=== PATIENT | female | born 1950 | race Hispanic/Latino ===

== ENCOUNTER 2021-03-26 19:38 | Emergency (ER) | payer MEDICARE ==
[2021-03-26] MEDS ORDERED: ALUM-MAG HYDROXIDE-SIMETHICONE 200-200-20MG/5ML ORAL LIQD 30 ML PO ONE (21:24)
[2021-03-26] MEDS ORDERED: MORPHINE 4 MG/1 ML INJ IV ONE (21:24)
[2021-03-26] MEDS ORDERED: ONDANSETRON 4 MG/2 ML INJ IV ONE (21:24)
[2021-03-26] MEDS ORDERED: LIDOCAINE VISCOUS 2% 15 ML ORAL LIQD PO ONE (21:24)
[2021-03-26] MEDS ORDERED: PANTOPRAZOLE 40 MG INJ IV ONE (21:24)
--- NOTE | 2021-03-26 21:33 | Emergency Department Report ---
ED Chest Pain HPI - General Chief Complaint: Chest Pain Stated Complaint: CHEST PAIN Time Seen by Provider: 03/26/21 21:13 Source: patient Mode of arrival: Ambulatory Limitations: No Limitations - History of Present Illness Initial Comments: Chief complaint: Chest pain HPI: This is a 70-year-old female with history of thyroid cancer status post thyroidectomy, hypertension who presents with right-sided severe chest pain radiating to the back. Sudden onset of 12:30 PM. 10/10 dull burning pain. She has associated vomiting diarrhea. She denies fever headache shortness of breath. She attempted Pepto-Bismol and cold medicine. She states, "I cannot get comfortable." I reviewed electronic record. In November of this year patient was admitted for ch est pain with elevated troponin values. On 11/30/2020 left heart catheterization revealed normal coronary arteries without aortic stenosis normal ejection fraction. She denies sick contacts MD Complaint: chest pain -: Sudden (12:30 PM while watching TV) Onset: during rest Pain Location: right chest Pain Radiation: back Severity scale (0 -10): 10 Quality: other (Burning) Consistency: constant Improves With: nothing Worsens With: nothing Other Symptoms: other (Vomiting diarrhea) Treatments Prior to Arrival: other (Pepto-Bismol cold medicine) - Related Data Home Medications Medication Instructions Recorded Confirmed Last Taken Levothyroxine Sodium 137 mcg PO QAM 12/01/20 12/01/20 11/28/20 [Levothyroxine] Losartan/Hydrochlorothiazide 1 each PO DAILY 12/01/20 12/01/20 11/28/20 [Losartan-Hctz 100-25 mg Tab] Simvastatin 20 mg PO DAILY 12/01/20 12/01/20 11/28/20 atenoloL [Tenormin] 50 mg PO DAILY 12/01/20 12/01/20 11/28/20 oxyCODONE /ACETAMINOPHEN [Percocet 10 mg PO Q8H 12/01/20 12/01/20 11/28/20 5/325 mg] Previous Rx's Medication Instructions Recorded Last Taken Type Omeprazole 40 mg PO DAILY 30 Days #30 03/27/21 Unknown Rx capsule. Allergies Allergy/AdvReac Type Severity Reaction Status Date / Time No Known Allergies Allergy Unverified 11/29/20 15:58 Heart Score - HEART Score History: Slightly suspicious EKG: Normal Age: > 65 Risk factors: 1-2 risk factors Troponin: < normal limit HEART Score: 3 - EKG Read Time Time EKG Completed: 21:00 EKG Read Time: 21:13 - Critical Actions Critical Actions: 0-3 pts:0.9-1.7%risk of adverse cardiac event.Candidate for discharge ED Review of Systems ROS: Stated complaint: CHEST PAIN Other details as noted in HPI Comment: All other systems reviewed and negative Constitutional: denies: chills, fever, malaise Respiratory: denies: cough, shortness of breath Cardiovascular: chest pain Gastrointestinal: nausea, vomiting, diarrhea. denies: abdominal pain Musculoskeletal: back pain ED Past Medical Hx - Past Medical History Previous Medical History?: Yes Hx Hypertension: Yes Additional medical history: Thyroid cancer status post thyroidectomy - Surgical History Past Surgical History?: Yes Hx Appendectomy: No Additional Surgical History: Thyroidectomy, foot surgery - Social History Smoking Status: Former Smoker Substance Use Type: None - Medications Home Medications: Home Medications Medication Instructions Recorded Confirmed Last Taken Type Levothyroxine Sodium 137 mcg PO QAM 12/01/20 12/01/20 11/28/20 History [Levothyroxine] Losartan/Hydrochlorothiazide 1 each PO DAILY 12/01/20 12/01/20 11/28/20 History [Losartan-Hctz 100-25 mg Tab] Simvastatin 20 mg PO DAILY 12/01/20 12/01/20 11/28/20 History atenoloL [Tenormin] 50 mg PO DAILY 12/01/20 12/01/20 11/28/20 History oxyCODONE /ACETAMINOPHEN [Percocet 10 mg PO Q8H 12/01/20 12/01/20 11/28/20 History 5/325 mg] Omeprazole 40 mg PO DAILY 30 Days #30 03/27/21 Unknown Rx capsule. ED Physical Exam - General Limitations: No Limitations General appearance: alert, in no apparent distress, anxious, other (Rocking back and forth, appears in severe pain, anxious) - Head Head exam: Present: atraumatic, normocephalic - Eye Eye exam: Present: normal appearance - ENT ENT exam: Present: mucous membranes moist - Neck Neck exam: Present: normal inspection, full ROM. Absent: tenderness, meningismus - Respiratory Respiratory exam: Present: normal lung sounds bilaterally. Absent: respiratory distress, wheezes, rales, rhonchi - Cardiovascular Cardiovascular Exam: Present: regular rate, normal rhythm, normal heart sounds. Absent: systolic murmur, diastolic murmur, rubs, gallop - GI/Abdominal GI/Abdominal exam: Present: soft, normal bowel sounds. Absent: distended, tenderness, guarding, rebound - Extremities Exam Extremities exam: Present: normal inspection - Back Exam Back exam: Present: normal inspection - Neurological Exam Neurological exam: Present: alert, oriented X3, normal gait - Psychiatric Psychiatric exam: Present: normal mood, anxious - Skin Skin exam: Present: warm, dry, intact, normal color. Absent: rash ED Course Vital Signs 03/26/21 20:45 Temperature 99.4 F Pulse Rate 99 H Respiratory 20 Rate Blood Pressure 179/54 O2 Sat by Pulse 99 Oximetry ONEAL score - Oneal Score Age > 65: (1) Yes Aspirin use within the Past 7 Days: (0) No 3 or more CAD Risk Factors: (0) No 2 or more Angina events in past 24 hrs: (1) Yes Known CAD with more than 50% Stenosis: (0) No Elevated Cardiac Markers: (0) No ST Deviation Greater than 0.5mm: (0) No ONEAL Score: 2 ED Medical Decision Making - Lab Data Result diagrams: 03/26/21 21:50 03/26/21 21:50 - EKG Data -: EKG Interpreted by Co EKG shows normal: sinus rhythm, axis, intervals, QRS complexes, ST-T waves Rate: normal - EKG Data When compared to previous EKG there are: no significant change Interpretation: normal EKG 03/26/21 21:32 EKG obtained at 2100 EKG interpreted by mo EKG interpreted by mo Rate 60 bpm normal sinus rhythm normal rate normal axis normal intervals no ST elevation no ST-T signs of ischemia normal EKG EKG unchanged from 12/01/2020 - Radiology Data Radiology results: report reviewed Patient Name: CARLA BELLAMY Gender: Female Date of : 1950 Referring Provider: FAYE MCGARRY Organization: [facility] Accession Number: [id number] Requested Date: March 26, 2021 21:15 Report Status: Final Requested Procedure: 1 Procedure Description: XR chest routine 2V Modality: XR Findings Reporting MD: Floridalma Barnhart Dictation Time: March 26, 2021 20:33 Nutrition Services Aide: Not available Dish Cloth Inspector Date: CHEST 2 VIEWS INDICATION / CLINICAL INFORMATION: Chest Pain. COMPARISON: 11/29/20 FINDINGS: SUPPORT DEVICES: None. HEART / MEDIASTINUM: No significant abnormality. LUNGS / PLEURA: No significant pulmonary or pleural abnormality. No pneumothorax. ADDITIONAL FINDINGS: No significant additional findings. IMPRESSION: 1. No acute findings. No change. Signer Name: Floridalma Barnhart MD Signed: 03/26/2021 8:33 PM Workstation Name: [id number] Patient Name: CARLA BELLAMY Gender: Female Date of : 1950 Referring Provider: FAYE MCGARRY Organization: [facility] Accession Number: [id number] Requested Date: March 26, 2021 21:22 Report Status: Final Requested Procedure: 1 Procedure Description: CT angio chest Modality: CT Findings Reporting MD: Jose Luis Salcido Dictation Time: March 26, 2021 23:57 Nutrition Services Aide: Not available Dish Cloth Inspector Date: CTA CHEST WITH IV CONTRAST INDICATION: right severe chest pain radiating to back CONTRAST: 100 cc Omnipaque 350 IV COMPARISON: CTA chest 12/01/2020 Three-plane MIP reconstructions were produced. All CT scans at this location are performed using CT dose reduction for ALARA by means of automated exposure control. FINDINGS: No significant axillary or chest wall lesions are seen. No pleural effusions are noted. No pneumothorax or pneumomediastinum are seen. No mediastinal or hilar masses are noted. No obvious endobronchial lesions are seen. Chronic changes are again seen in the lung marcelo. No obvious pneumonic infiltrates are seen. No pulmonary nodules or masses are noted. Aorta is not well opacified but shows no aneurysmal dilatation or obvious evidence of dissection. Good opacification of the pulmonary arterial system was achieved. I do not see evidence of pulmonary thromboembolism. CT ABDOMEN AND PELVIS WITH CONTRAST INDICATION: right severe chest pain radiating to back CONTRAST: 100 cc Omnipaque 350 IV COMPARISON: None available. All CT scans at this location are performed using CT dose reduction for ALARA by means of automated exposure control. FINDINGS: No pneumoperitoneum is seen. Gallbladder has been removed. There is mild intrahepatic and extrahepatic biliary prominence common bile duct measuring up to 8 mm but this is not significantly changed from previous study. Tiny probable cysts are seen in both kidneys and the liver. No significant abdominal masses are seen. Fatty infiltration of the pancreas is noted without obvious acute change. Appendix appears within normal limits. No evidence of bowel obstruction is seen. The colon is difficult to evaluate beyond the hepatic flexure due to lack of distention. Colonic diverticulosis is seen without definite evidence of diverticulitis. I cannot exclude mild diffuse colitis in the nondistended segments do not see surrounding inflammation. No free fluid is seen. No lymphadenopathy is noted. No pelvic masses are seen. No urinary obstructive changes are noted. Aorta shows no aneurysmal dilatation or obvious evidence of dissection. IMPRESSION: 1. No evidence of pulmonary thromboembolism 2. No obvious evidence of aortic dissection 3.: Is difficult to evaluate in much of its length due to lack of distention. Mild colitis is not excluded though not strongly favored. [facility] [address], [address] [place] [address] P [phone] F [phone] [facility] - Report exported on Mar 27, 2021 00:03:46 -0500 - Page 2 of 2 Signer Name: Jose Luis Salcido MD Signed: 03/26/2021 11:57 PM Workstation Name: [id number] - Medical Decision Making 1. Right-sided chest pain: Pulmonary embolism, ACS, dissection, all ruled out with CT scan. CT abdomen pelvis but no evidence of pneumoperitoneum or acute inflammatory obstructive process. Differential includes GERD esophagitis pleurisy. Patient received 2 doses of Covid vaccine. Troponin x 2 negative. EKG normal without changes from previous EKG in November which was also normal. Patient had left heart catheterization which revealed normal coronary arteries 2. Chronic pain syndrome: Patient takes Percocet 10 mg tablets as needed for chronic pain in her extremities after severe trauma requiring orthopedic surgeries. Patient does not have a current life limb organ threatening condition which needs further evaluation in the emergency department. She referred to her primary care physician. I have prescribed omeprazole for esophagitis GERD. Referred to core dipper. Critical care attestation.: If time is entered above; I have spent that time in minutes in the direct care of this critically ill patient, excluding procedure time. ED Disposition Clinical Impression: GERD (gastroesophageal reflux disease) Disposition: HOME / SELF CARE / HOMELESS Is pt being admited?: No Does the pt Need Aspirin: No Condition: Stable Instructions: Gastroesophageal Reflux Disease, Adult, [id number] Prescriptions: Omeprazole 40 mg PO DAILY 30 Days #30 capsule.dr Referrals: PRIMARY CARE, [Referring] - 3-5 Days SHREYAS HERNANDEZ MD [Staff Physician] - 3-5 Days
--- NOTE | 2021-03-26 21:38 | XRay Report ---
CHEST 2 VIEWS INDICATION / CLINICAL INFORMATION: Chest Pain. COMPARISON: 11/29/20 FINDINGS: SUPPORT DEVICES: None. HEART / MEDIASTINUM: No significant abnormality. LUNGS / PLEURA: No significant pulmonary or pleural abnormality. No pneumothorax. ADDITIONAL FINDINGS: No significant additional findings. IMPRESSION: 1. No acute findings. No change. Signer Name: Floridalma Barnhart MD Signed: 03/26/2021 9:33 PM Workstation Name: [id number]
[2021-03-26 22:31] LABS: Basophils % (Auto) 0.2 % (0.0-1.8); Eosinophils # (Auto) 0.1 K/mm3 (0.0-0.4); Eosinophils % (Auto) 0.8 % (0.0-4.3); Hematocrit 39.8 % (30.3-42.9); Hemoglobin 13.7 gm/dl (10.1-14.3); Lymphocytes # (Auto) 1.1 K/mm3 (1.2-5.4); Lymphocytes % (Auto) 8.2 % (13.4-35.0); Mean Corpuscular HGB Conc 35 % (30-34); Mean Corpuscular Volume 92 fl (79-97); Monocytes # (Auto) 0.2 K/mm3 (0.0-0.8); Monocytes % (Auto) 1.4 % (0.0-7.3); Platelet Count 185 K/mm3 (140-440); Red Blood Count 4.31 M/mm3 (3.65-5.03); Red Cell Distribution Width 13.2 % (13.2-15.2)
[2021-03-26 22:58] LABS: Alanine Aminotransferase 13 units/L (7-56); Albumin 4.8 g/dL (3.9-5); BUN/Creatinine Ratio 26; Blood Urea Nitrogen 23 mg/dL (7-17); Calcium 10.4 mg/dL (8.4-10.2); Hemolysis Index 8
--- NOTE | 2021-03-27 01:02 | Cat Scan Report ---
CTA CHEST WITH IV CONTRAST INDICATION: right severe chest pain radiating to back CONTRAST: 100 cc Omnipaque 350 IV COMPARISON: CTA chest 12/01/2020 Three-plane MIP reconstructions were produced. All CT scans at this location are performed using CT d ose reduction for ALARA by means of automated exposure control. FINDINGS: No significant axillary or chest wall lesions are seen. No pleural effusions are noted. No pneumothorax or pneumomediastinum are seen. No mediastinal or hilar masses are noted. No obvious endo bronchial lesions are seen. Chronic changes are again seen in the lung marcelo. No obvious pneumonic i nfiltrates are seen. No pulmonary nodules or masses are noted. Aorta is not well opacified but shows no aneurysmal dilatation or obvious evidence of dissection. Good opacification of the pulmonary arterial system was achieved. I do not see evidence of pulmonary thromboembolism. CT ABDOMEN AND PELVIS WITH CONTRAST INDICATION: right severe chest pain radiating to back CONTRAST: 100 cc Omnipaque 350 IV COMPARISON: None available. All CT scans at this location are performed using CT dose reduction for ALARA by means of automated e xposure control. FINDINGS: No pneumoperitoneum is seen. Gallbladder has been removed. There is mild intrahepatic and e xtrahepatic biliary prominence common bile duct measuring up to 8 mm but this is not significantly ch anged from previous study. Tiny probable cysts are seen in both kidneys and the liver. No significant abdominal masses are seen. Fatty infiltration of the pancreas is noted without obvious acute change. Appendix appears within normal limits. No evidence of bowel obstruction is seen. The colon is diffic ult to evaluate beyond the hepatic flexure due to lack of distention. Colonic diverticulosis is seen without definite evidence of diverticulitis. I cannot exclude mild diffuse colitis in the nondistende d segments do not see surrounding inflammation. No free fluid is seen. No lymphadenopathy is noted. N o pelvic masses are seen. No urinary obstructive changes are noted. Aorta shows no aneurysmal dilatat ion or obvious evidence of dissection. IMPRESSION: 1. No evidence of pulmonary thromboembolism 2. No obvious evidence of aortic dissection 3.: Is difficult to evaluate in much of its length due to lack of distention. Mild colitis is not exc luded though not strongly favored. Signer Name: Jose Luis Salcido MD Signed: 03/27/2021 12:57 AM Workstation Name: [id number]
[2021-03-27] MEDS ORDERED: oxyCODONE /ACETAMINOPHEN 5-325MG TAB PO ONE (01:13)
[2021-03-27 02:17] VITALS: BP 170/80
--- NOTE | 2021-04-03 13:50 | Electrocardiograph Report ---
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
== END 2021-03-27 02:19 | disposition home or self-care (01) ==
LOC: ED 19:38
DX: K21.9 Gastro-esophageal reflux disease without esophagitis (principal); I10 Essential (primary) hypertension; Z98.890 Other specified postprocedural states; Z87.891 Personal history of nicotine dependence
CPT/HCPCS: 36415; 71046; 71275; 74177; 80053; 83690; 84484; 85025; 93005; 96374; 96375; 99284; C9113; J2270; J2405; Q9967